=== PATIENT | female | born 1990 | race Caucasian/White ===

== ENCOUNTER 2025-05-26 22:42 | Emergency (ER) | payer MEDICAID ==
[2025-05-26 23:24] LABS: BASOPHILS % 0.2 % (0.0-2.0); EOSINOPHILS % 0.6 % (0.0-5.0); HEMATOCRIT. 36.8 % (36.0-48.0); HEMOGLOBIN. 12.4 g/dL (12.0-16.0); LYMPHOCYTES % 33.8 % (20.0-50.0); MEAN PLATELET VOLUME 9.3 fl (7.4-10.4); MONOCYTES % 8.5 % (2.0-8.0); NEUTROPHILS % 56.9 % (40.0-76.0); PLATELET 238 x1000/uL (130-400); RED BLOOD CELL COUNT 4.31 mill/uL (4.2-5.4); RED CELL DISTRIBUTION WIDTH 13.6 % (11.6-14.6)
[2025-05-26 23:30] LABS: HCG SCREEN POSITIVE
[2025-05-26 23:35] LABS: INR 0.9
[2025-05-26 23:38] LABS: CREATININE 0.4 mg/dL (0.6-1.0)
[2025-05-26 23:39] LABS: ETHANOL BLOOD < 10 mg/dL (<10); UREA NITROGEN BLOOD 7 mg/dL (9-23)
[2025-05-26 23:40] LABS: ASPARTATE AMINOTRANSFERASE 12 IU/L (<34)
[2025-05-26 23:41] LABS: BILIRUBIN DIRECT < 0.1 mg/dL (<=3.0); BILIRUBIN TOTAL 0.3 mg/dL (0.1-1.0); PROTEIN TOTAL 7.0 g/dL (6.0-8.3)
[2025-05-26 23:45] LABS: CLARITY URINE CLEAR (CLEAR); COLOR URINE YELLOW (YELLOW); GLUCOSE URINE TRACE (NEGATIVE); KETONES URINE NEGATIVE (NEGATIVE); LEUKOCYTE ESTERASE URINE NEGATIVE (NEGATIVE); NITRITE URINE NEGATIVE (NEGATIVE); OCCULT BLOOD URINE TRACE (NEGATIVE); PH URINE 7.0 (4.5-8.0); PROTEIN URINE NEGATIVE (NEGATIVE); SPECIFIC GRAVITY URINE 1.006 (1.005-1.030); UROBILINOGEN URINE 0.2 E.U./dL (0.2-1.0)
[2025-05-26 23:59] LABS: *AMPHETAMINES SCREEN URINE NEGATIVE (NEGATIVE); *BARBITURATES SCREEN URINE NEGATIVE (NEGATIVE); *BENZODIAZEPINES SCREEN URINE NEGATIVE (NEGATIVE); *COCAINE SCREEN URINE NEGATIVE (NEGATIVE); CANNABINOID URINE SCREEN NEGATIVE (NEGATIVE); ECSTASY MDMA SCREEN URINE NEGATIVE (NEGATIVE); METHADONE URINE SCREEN NEGATIVE (NEGATIVE); OPIATES URINE SCREEN NEGATIVE (NEGATIVE); PHENCYCLIDINE URINE SCREEN NEGATIVE (NEGATIVE)
[2025-05-27] LABS: B-HCG QUANTITATIVE 11284 mIU/mL (<6)
[2025-05-27 00:25] VITALS: BP 143/86; PULSE 88; RESP 16; TEMP 37.1; O2SAT 99
[2025-05-27 00:34] LABS: AMORPHOUS SEDIMENT URINE 1+ /lpf; BACTERIA URINE TRACE; RBC URINE 0-2 /hpf (0-2); SQUAMOUS EPITHELIAL CELL URINE 2+ /lpf (RARE/1+); WBC URINE 0-2 /hpf (0-2)
[2025-05-28 07:12] LABS: HSV TYPE 2 SPECIFIC AB IGG Non Reactive (Non Reactive)
[2025-05-29 04:12] LABS: CHLAMYDIA TRACHOMATIS NAA Negative (Negative); NEISSERIA GONORRHOEAE NAA Negative (Negative)
== END 2025-05-27 00:43 | disposition short-term general hospital (02) ==
LOC: ER 22:52 → CMPBEDREQ 05-27 07:26
DX: O26.893 Other specified pregnancy related conditions, third trimester (principal); R10.31 Right lower quadrant pain; R10.32 Left lower quadrant pain; R10.2 Pelvic and perineal pain; Z79.899 Other long term (current) drug therapy; Z3A.30 30 weeks gestation of pregnancy
CPT/HCPCS: 36415; 76805; 80048; 80076; 80305; 80320; 81003; 83735; 84702; 84703; 85025; 86592; 86695; 86696; 86850; 86900; 87340; 87491; 87591; 99291; G0480

== ENCOUNTER 2025-06-03 12:48 | Emergency (ER) | payer MEDICAID ==
[~2025-06-03] VITALS: Ht 149.9 cm; Wt 73.0 kg
[2025-06-03 12:52] VITALS: O2SAT 100
[2025-06-03 13:49] VITALS: BP 111/62; PULSE 90; RESP 18; TEMP 36.9; O2SAT 100
== END 2025-06-03 13:52 | disposition home or self-care (01) ==
LOC: ER 12:48
DX: O98.513 Other viral diseases complicating pregnancy, third trimester (principal); Z3A.31 31 weeks gestation of pregnancy
CPT/HCPCS: 99282